=== PATIENT | female | born 1945 | race Caucasian/White ===

== ENCOUNTER 2020-02-26 06:54 | Outpatient (NON) | payer MEDICARE, SELFPAY ==
[2020-02-27 00:43] LABS: SARS-CoV-2 RNA PCR Negative
== END 2020-02-26 06:55 ==
PROVIDERS: PCP Family Medicine; Visit Provider Family Medicine
DX: Z20.828 Contact with and (suspected) exposure to other viral communicable diseases (principal)
CPT/HCPCS: 87635; C9803; U0003

== ENCOUNTER 2020-05-06 17:32 | Emergency (ER) | payer MEDICARE, SELFPAY ==
--- NOTE | ~2020-05-06 | CT_ITS ---
EXAMINATION: CT brain wo con INDICATION: Head injury COMPARISON: 03/28/2017 TECHNIQUE: Standard unenhanced head CT. The dose-length product (DLP) was 605.33 mGy-cm. The mA was a djusted according to patient size. Iterative reconstruction technique was employed. FINDINGS: There is no acute intraparenchymal hemorrhage. No evidence of mass lesion. No evidence of a cute infarction. There is moderate periventricular and subcortical hypodensity probably related to sm all vessel ischemic disease. There is moderate prominence of the sulci and ventricles related to cere bral atrophy. Intracranial calcified cerebral atherosclerosis is noted. There are no extra-axial keely ections. There is no mass effect or midline shift. The orbits and soft tissues are unremarkable. The re is mild mucosal thickening of the paranasal sinuses. IMPRESSION: 1. No acute intracranial abnormality. 2. Age related findings. Reviewed, dictated and finalized at location A. ING MACHINE OPERATOR
--- NOTE | ~2020-05-06 | CT_ITS ---
EXAMINATION: CT facial & cervical spine wo DATE: 05/06/2020 18:16 INDICATION: Head injury, facial and neck pain after fall TECHNIQUE: Computed tomography (CT) of the maxillofacial region and cervical spine was performed with out intravenous contrast. The dose-length product (DLP) was 156.34 mGy-cm. Automated exposure control and iterative reconstruction technique were employed. COMPARISON: 03/28/2017 FINDINGS: MAXILLOFACIAL CT: No definite facial bone fracture is identified. The globes and orbits are intact. There is mild mucos al thickening of the paranasal sinuses. CERVICAL SPINE CT: There are 2 mm of anterolisthesis of C6 on C7. Vertebral body alignment is otherwise maintained. No f racture is identified. The odontoid is intact. The vertebral body heights are normal. Small degenerat kailey osteophytes project from the anterior endplates of multiple vertebral bodies. There is moderate t o severe multilevel facet and uncovertebral joint osteoarthritis. The prevertebral soft tissues are n ormal. Stable nodules of the visualized lung apices are consistent with old granulomatous disease. IMPRESSION: 1. No facial fracture identified. 2. Mild cervical spondylosis without acute findings. Reviewed, dictated and finalized at location A. ER MACHINE
[2020-05-06 17:36] VITALS: BP 100/80; PULSE 74; RESP 18; TEMP 36; O2SAT 100
--- NOTE | 2020-05-06 20:36 | ED.GENADULT ---
HPI - General Adult General Chief complaint: Head Injury Stated complaint: fall/tripped over dog gate/family denies los Time Seen by Provider: 05/06/20 19:57 Source: patient and family (Daughter) Mode of arrival: ambulatory Limitations: dementia History of Present Illness HPI narrative: Patient presents with daughter with chief complaint of hematoma to her forehead and abrasions to her nose after tripping over the dog gate at home and falling. They deny syncope and states that the patient was able to help get herself up. They deny any changes to her baseline mental status, vomiting, complaints of dizziness, chest pain or shortness of breath. Patient reports small abrasions to her anterior knees but states that they are not painful. Patient denies any pain to her chest shoulders or elbows. Patient denies any neck or back pain. Patient denies any other injuries or concerns. Related Data Allergies Allergy/AdvReac Type Severity Reaction Status Date / Time No Known Allergies Allergy Unknown Unverified 02/22/19 13:00 No Known Allergies Allergy Uncoded 02/22/19 13:00 Review of Systems Review of Systems: Narrative: CONSTITUTIONAL: Denies fever, chills, or sweats. EYES: Denies visual changes, redness, or discharge. ENT: Denies rhinorrhea, congestion, sore throat, or otalgia. CARDIOVASCULAR: Denies chest pain, palpitations, or edema. RESPIRATORY: Denies cough or dyspnea. GASTROINTESTINAL: Denies abdominal pain, nausea, vomiting, or diarrhea. GENITOURINARY: Denies dysuria or hematuria. SKIN: Reports abrasion to nose and hematoma to forehead denies rash or itching. MUSCULOSKELETAL: Denies back pain, joint pain, or myalgia. NEUROLOGIC: Denies headache, numbness, dizziness, or weakness. PSYCHIATRIC: Denies anxiety or depression. Exam Narrative: Exam Narrative: GENERAL: Well-appearing, well-nourished, and in no acute distress. HEAD: Normocephalic, atraumatic. EYES: PERRLA and EOMI. ENT: Nares clear, no rhinorrhea or epistaxis. Mucous membranes moist. Oropharynx without tonsillar hypertrophy exudate or other lesions. Bilateral TMs pearly cabezas nonbulging. No hemotypanum. NECK: Supple. No adenopathy or masses. No tenderness to palpation. CHEST: No abrasions, ecchymosis or erythema. Clear to auscultation. No respiratory distress. No wheezes rales or rhonchi HEART: Regular rate and rhythm. ABDOMEN: Soft, nontender, nondistended, normal active bowel sounds. EXTREMITIES: small abrasions to knees, patient denies elver tenderness. ROM intact. no appreciated swelling. Normal range of motion. No edema. SKIN: Hematoma to center of forehead in abrasion to the nasal bridge. There is not epistaxis of the nose. warm, dry, no rash. NEURO: No focal deficits. Alert and oriented x3. PSYCH: Normal mood and affect. Course Vital Signs Vital signs: Vital Signs Temperature 96.8 F L 05/06/20 17:36 Pulse Rate 74 05/06/20 17:36 Respiratory Rate 18 05/06/20 17:36 Blood Pressure 100/80 05/06/20 17:36 Pulse Oximetry 100 05/06/20 17:36 Temperature 96.8 F L 05/06/20 17:36 Pulse Rate 74 05/06/20 17:36 Respiratory Rate 18 05/06/20 17:36 Blood Pressure 100/80 05/06/20 17:36 Pulse Oximetry 100 05/06/20 17:36 Medical Decision Making MDM Narrative Medical decision making narrative: Patient CT of her face head and cervical spine were negative for acute injury. Discussed wound care and application of antibacterial ointment to abrasion and cool compress to hematoma. Discussed follow-up with primary care within a week for reevaluation and return to emergency department if any emergent symptoms present with patient and her daughter. Patient did not fall due to dizziness, syncope, chest pain. It was a fall due to miss stepping over a dog gate. Vital Signs Vital Signs: Vital Signs Temperature 96.8 F L 05/06/20 17:36 Pulse Rate 74 05/06/20 17:36 Respiratory Rate 18 05/06/20 17:36 Blood Pressure 100/80 05/06/20 17:36 Pulse Oximetry 10
[2020-05-06 21:00] VITALS: BP 112/78; PULSE 76; RESP 18; O2SAT 100
== END 2020-05-06 21:00 | disposition home or self-care (01) ==
PROVIDERS: Emergency Provider Emergency Medicine; PCP Family Medicine
DX: S00.83XA Contusion of other part of head, initial encounter (principal); S00.31XA Abrasion of nose, initial encounter; W01.0XXA Fall on same level from slipping, tripping and stumbling without subsequent striking against object, initial encounter
CPT/HCPCS: 70450; 70486; 72125; 99284

== ENCOUNTER 2020-05-26 12:20 | Observation (INO) | payer MEDICARE, SELFPAY ==
[2020-05-26] VITALS (17 sets, daily range): BP systolic 153–204; BP diastolic 65–95; PULSE 50–93; RESP 9–20; TEMP 35.9–37; O2SAT 99–100; BMI 21.7
--- NOTE | ~2020-05-26 | XR_ITS ---
XR chest 1V DATE: 05/26/2020 14:07 INDICATION: Confusion, transient alteration of awareness. TECHNIQUE: AP chest COMPARISON: 03/29/2017 CT abdomen scan 03/28/2017 portable AP chest FINDINGS: Normal heart size. Mild aortic unfolding. No hilar or mediastinal enlargement. No pulmonary infiltrate or consolidation, pleural effusion or pulmonary vascular congestion or pneumo thorax. IMPRESSION: No active cardiopulmonary disease Reviewed, dictated and finalized at location A. TIATIONS DIRECTOR
--- NOTE | ~2020-05-26 | CT_ITS ---
EXAMINATION: CT brain wo con DATE: 05/26/2020 13:55 INDICATION: Confusion. Multiple falls. TECHNIQUE: Computed tomography (CT) of the head was performed without intravenous contrast. The mA wa s adjusted according to patient size. Iterative reconstruction technique was employed. Exam dose: 60 5.33 mGy-cm total exam DLP. COMPARISON: 05/16/2020 CT brain FINDINGS: Cerebral atherosclerotic calcifications are noted, involving particularly the carotid sipho n internal carotid arteries. There is nonspecific diminished attenuation of the subcortical and periv entricular cerebral white matter, likely due to chronic small vessel ischemic changes. There is moderate central and cortical cerebral and cerebellar atrophy. No intracranial mass lesion or hemorrhage, midline shift or mass effect is evident. Bilateral basal g anglia calcifications are noted. No subdural or epidural hematoma. No fracture or bone destruction of the cranial vault. Mild focal right posterior ethmoid air cell opacification. Included paranasal sinuses and the mastoid air cells otherwise appear normally developed and aerated. IMPRESSION: Cerebral atherosclerosis and chronic small vessel ischemic changes of the cerebral white matter No acute intracranial finding or significant change since 05/16 2020 Reviewed, dictated and finalized at Location A. Reviewed, dictated and finalized at location A. CLUB NECK WHIPPER
--- NOTE | 2020-05-26 13:42 | ED.GENADULT ---
HPI - General Adult General Chief complaint: Fall Stated complaint: fall - head injury Time Seen by Provider: 05/26/20 13:16 Source: patient Limitations: dementia History of Present Illness HPI narrative: Patient is 74 years old white female brought to the emergency room by her son who is telling me that he would like to get some evaluation for the patient because Not taking her medication, fighting with her sister who lives with her all the time, cannot take care of herself. The son reported that her symptoms got worse after a fall 1 week ago when she came to our emergency room at that time. Also telling me that he try to place her in a mcc who declined accepting her because she gets agitated every now and then. The son denies any new symptoms compared to 1 week ago. Related Data Home Medications Medication Instructions Recorded Confirmed escitalopram oxalate 5 mg PO DAILY 05/26/20 losartan-hydrochlorothiazide 1 tablet PO DAILY 05/26/20 [Hyzaar] metoprolol succinate 25 mg PO DAILY 05/26/20 Allergies Allergy/AdvReac Type Severity Reaction Status Date / Time No Known Allergies Allergy Unknown Unverified 02/22/19 13:00 No Known Allergies Allergy Uncoded 02/22/19 13:00 Review of Systems Review of Systems: ROS unobtainable: Yes unobtainable due to mental status PMFSH Social History Social History Gender identity (if verbalized by the patient): Male Exam Narrative: Exam Narrative: General appearance: Well-developed, well-nourished Skin: Normal color Head: Normocephalic, nontraumatic Eyes: Clear conjunctiva ENT: Oropharynx normal, ears normal, nose normal Neck: Supple, nontender Chest and respiratory: Airway patent, no respiratory distress, no accessory muscle use Heart: Regular rate/rhythm Abdomen: Soft, nontender, no organomegaly, quiet bowel sounds Vascular: Normal peripheral pulses, normal capillary refill. Musculoskeletal: Normal range of motion, nontender back Neurologic: Alert and oriented to her name only otherwise confused Course Course Emergency Course: Stable Vital Signs Vital signs: Vital Signs Temperature 35.9 C L 05/26/20 12:35 Pulse Rate 63 05/26/20 12:35 Respiratory Rate 17 05/26/20 12:35 Blood Pressure 181/65 H 05/26/20 12:35 Pulse Oximetry 100 05/26/20 12:35 Temperature 35.9 C L 05/26/20 12:35 Pulse Rate 63 05/26/20 12:35 Respiratory Rate 17 05/26/20 12:35 Blood Pressure 181/65 H 05/26/20 12:35 Pulse Oximetry 100 05/26/20 12:35 Medical Decision Making MDM Narrative Medical decision making narrative: Basically patient brought to the emergency room for evaluation for possible mcc placement. Labs, chest x-ray, CT head, UA ordered. Further plan to follow Differential Diagnosis Differential Diagnosis: Electrolyte imbalance, urinary tract infection, progression of dementia, major depression with agitation Vital Signs Vital Signs: Vital Signs Temperature 35.9 C L 05/26/20 12:35 Pulse Rate 63 05/26/20 12:35 Respiratory Rate 17 05/26/20 12:35 Blood Pressure 181/65 H 05/26/20 12:35 Pulse Oximetry 100 05/26/20 12:35 Temperature 35.9 C L 05/26/20 12:35 Pulse Rate 63 05/26/20 12:35 Respiratory Rate 17 05/26/20 12:35 Blood Pressure 181/65 H 05/26/20 12:35 Pulse Oximetry 100 05/26/20 12:35 Critical Care Time Critical Care Time Critical Care Time: Yes Total Critical Care Time: 30 Discharge Plan Discharge Prescriptions: No Action losartan-hydrochlorothiazide [Hyzaar] 50-12.5 mg Tablet 1 tablet PO DAILY RF: 0 escitalopram oxalate 5 mg Tablet 5 mg PO DAILY RF:
[2020-05-26 14:21] LABS: Basophils Percent Auto 0.4 % (0.2-1.2); Eosinophils Percent Auto 0.7 % (0-4.4); Hematocrit 38.5 % (37.0-47.0); Immature Granulocyte Absolute 0.01 K/mm3 (0.00-0.031); Immature Granulocyte Percent A 0.2 % (0-0.5); Lymphocytes Absolute Auto 0.93 K/mm3 (0.9-3.2); Lymphocytes Percent Auto 20.6 % (18.3-44.2); Mean Corpuscular HGB Conc 33.8 g/dl (32-36); Mean Corpuscular Hemoglobin 29.1 pg (26-34); Mean Corpuscular Volume 86.1 fl (80-100); Mean Platelet Volume 11.3 fl (7.4-10.4); Monocytes Absolute Auto 0.2 K/mm3 (0.1-0.6); Monocytes Percent Auto 5.3 % (2.6-8.5); Neutrophils Absolute Auto 3.3 K/mm3 (1.3-6.7); Neutrophils Percent Auto 72.8 % (45.5-73.1); Platelet Count Result 145 k/mm3 (150-375); Red Blood Count 4.47 M/mm3 (4.2-5.4); Red Cell Distribution Width 13.5 % (11.5-14.5); White Blood Count 4.5 K/mm3 (4.5-10.0)
[2020-05-26 14:36] LABS: Alanine Aminotransferase 9 U/L (4-35); Albumin Level 3.6 g/dL (3.5-5.1); Alkaline Phosphatase 71 U/L (38-126); Anion Gap 5 mmol/L (8-16); Aspartate Amino Transferase 25 U/L (14-36); Bilirubin,Total 0.8 mg/dL (0.2-1.3); Blood Urea Nitrogen 14 mg/dL (7-17); Calcium 9.3 mg/dL (8.4-10.2); Carbon Dioxide 35 mmol/L (22-30); Chloride 97 mmol/L (98-107); Estimated CRCL calculation 36 ml/min; Estimated Glomerular Filt Rate 54; Glucose 98 mg/dL (65-105); Potassium 2.8 mmol/L (3.4-5.0); Sodium 137 mmol/L (137-145)
[2020-05-26] MEDS: POTASSIUM CHLORIDE 20 MEQ PACKET (FOR LIQUID) 40 MEQ PO (15:23)
--- NOTE | 2020-05-26 16:00 | PCCCNOTE ---
Patient currently lives with her sister who no longer feels capable of caring for the patient due to her dementia. Son is requesting placement in memory care while he explores the possibility of having her live with him with the assistance of an aide. ER documents sent to [facility] and to [facility] Verm[facility]
--- NOTE | 2020-05-26 17:30 | PM.IMHP ---
H&P: HPI History of Present Illness Date/Time: 05/26/20 17:30 Chief Complaint: Fall, weakness, increasing confusion. Narrative: Willow Fields is a 74-year-old female with dementia and hypertension who presented to the emergency department earlier today with her son via private vehicle for evaluation due to increasing confusion and refusal to take medications. She is not able to provide an accurate history due to severe dementia and as such the following is obtained via a review of her electronic medical records and discussions with her son. She lives at home with her sister who reports increasing behavioral disturbances, outburst, and falls to the point where family members can no longer care for her. Apparently she has been refusing medications as well. She rambles and babbles nonsensically and cannot answer my questions in the appropriate contacts. Review of Systems Review of Systems: Narrative: Unable to be obtained given her severe dementia. [facility] Past Medical History Medical History (Updated 05/26/20 @ 23:35 by Emma Chong PA-C) Abnormal echocardiogram Echocardiogram in March 2017 showed normal left ventricular size and wall thickness with an ejection fraction of 66%. Basal inferior segment of the left ventricle was hypokinetic. Moderate pulmonary hypertension noted, 48 mmHg. Dementia Depression with anxiety Essential hypertension Surgical History Surgical History (Updated 05/26/20 @ 23:35 by Emma Chong PA-C) No history of previous surgery Family History Family History (Updated 05/26/20 @ 16:59 by Emma Chong PA-C) Father Lung cancer Mother Heart disease Dementia Social History Social History (Updated 05/26/20 @ 23:36 by Emma Chong PA-C) Social History: The patient lives in [place] with her sister. She is and has 2 sons. Nonsmoker. No alcohol or illicit substance use. Son Maik is his healthcare power of oil winterizer. Son Lennox is alternate power of oil winterizer. She is a do not resuscitate. Smoking status: Never smoker Alcohol intake: never Substance use: never Gender identity (if verbalized by the patient): Female Spiritual care concerns: No Meds Home Medications and Allergies Home Medications Medication Instructions Recorded Confirmed Type escitalopram oxalate 5 mg PO DAILY 05/26/20 05/26/20 History losartan-hydrochlorothiazide 1 tablet PO DAILY 05/26/20 05/26/20 History [Hyzaar] metoprolol succinate 25 mg PO DAILY 05/26/20 05/26/20 History Allergies Allergy/AdvReac Type Severity Reaction Status Date / Time No Known Allergies Allergy Unknown Unverified 02/22/19 13:00 Vital Signs Vital Signs - 24 hr 05/26/20 12:35 05/26/20 13:45 Temperature 96.7 F L Pulse Rate 63 59 L Respiratory Rate 17 16 Blood Pressure 181/65 H 195/95 H Pulse Oximetry 100 100 Exam Narrative: Exam Narrative: General: Thin frail elderly female sitting up in bed. Weight 59.2 kg. BMI: 21.7. HEENT: Old bruise in the mid forehead. Contusion about the superior nasal bridge. Pupils reactive. Extraocular motions appear to be intact. Sclerae anicteric. Oral mucosa moist. Oropharynx not visualized. Neck: Supple. Exam difficult as the patient moves frequently. Respiratory: Lung sounds are diminished due to poor effort. Cardiovascular: Regular rate and rhythm with S1-S2. Gastrointestinal: Abdomen is soft and nontender with positive bowel sounds. Skin: Warm and dry. Contusion of the superior nose. Old scab on the right knee. Old bruise mid forehead. Extremities: No cyanosis, clubbing, or edema. Radial and pedal pulses intact. Neurological: Alert to name only. Cranial nerves 2-12 are grossly intact. Speech is rambling and babbling. No facial asymmetry. She does not participate in the neurologic exam. Psychiatric: Confused. Rambles and babbles. Occasional irritable. H&P: Results Labs Labs: Short CBC 05/26/20 Range
--- NOTE | 2020-05-26 18:18 | ADMGEN ---
This patient, Willow Fields, was admitted to 2 Medical Room 245-. Patient/family oriented to hospital policies and general routines including ID bracelet, bed and alarms, visiting hours, pain management, procedures, bathroom and other care routines, personal items, smoking policy, room service/diet, and visiting hours. Information on how to activate the Rapid Response Team has been discussed. Patient/Family are encouraged to report perceived risks to care and to ask questions if they do not understand what they are told or what they should do.
[2020-05-26] MEDS: SODIUM CHLORIDE 0.9% IV 500 ML IV CONT (20:49)
[2020-05-26 21:18] LABS: Thyroid Stimulating Hormone Reflex 0.797 uIU/mL (0.465-4.68)
[2020-05-26 22:12] LABS: Anion Gap 6 mmol/L (8-16); Blood Urea Nitrogen 12 mg/dL (7-17); Calcium 8.6 mg/dL (8.4-10.2); Carbon Dioxide 30 mmol/L (22-30); Chloride 101 mmol/L (98-107); Estimated CRCL calculation 40 ml/min; Estimated Glomerular Filt Rate > 60; Glucose 112 mg/dL (65-105); Magnesium 1.9 mg/dL (1.6-2.3); Sodium 137 mmol/L (137-145)
[2020-05-27] VITALS (7 sets, daily range): BP systolic 103–151; BP diastolic 64–80; PULSE 47–62; RESP 16; TEMP 36.2–36.6; O2SAT 97–100; BMI 21.1
[2020-05-27 07:00] LABS: Anion Gap 3 mmol/L (8-16); Blood Urea Nitrogen 9 mg/dL (7-17); Calcium 8.6 mg/dL (8.4-10.2); Carbon Dioxide 31 mmol/L (22-30); Chloride 101 mmol/L (98-107); Estimated CRCL calculation 42 ml/min; Estimated Glomerular Filt Rate > 60; Glucose 110 mg/dL (65-105); Potassium 3.7 mmol/L (3.4-5.0); Sodium 135 mmol/L (137-145)
[2020-05-27 07:46] LABS: Magnesium 1.9 mg/dL (1.6-2.3)
--- NOTE | 2020-05-27 08:04 | PCOTNOTE ---
Attempted OT evaluation, Per RN patient has been up all night and has been combative of care. Pt is finally sleeping and RN requested we attempt evaluation at later time. Will follow.
--- NOTE | 2020-05-27 09:36 | PM.IMPN ---
Progress Note: A&P Assessment and Plan (1) Dementia with behavioral disturbance: Code(s): F03.91 - Unspecified dementia with behavioral disturbance Status: Acute Assessment and Plan: The patient is being admitted to the hospitalist service as her sister can no longer care for her at home due to behavioral disturbances associated with her dementia in addition to generalized weakness and history of falls. PT/OT to evaluate patient CC consulted (2) History of recent fall: Code(s): Z91.81 - History of falling Status: Acute Assessment and Plan: Please see above a/p (3) Generalized weakness: Code(s): R53.1 - Weakness Status: Acute Assessment and Plan: Please see above a/p (4) Hypokalemia: Code(s): E87.6 - Hypokalemia Status: Acute Assessment and Plan: K this morning is 3.7. She is refusing all oral medications at this time. HCTZ held Monitor daily, replace as needed (5) Essential hypertension: Code(s): I10 - Essential (primary) hypertension Status: Acute Assessment and Plan: BP a bit soft now this morning at 100s sys. She is refusing her home meds currently. Also, she is bradycardic into the 40s at times HCTZ held due to hypokalemia Continue Losartan Will continue metoprolol at 12.5 mg given bradycardia Monitor closely (6) Thrombocytopenia: Code(s): D69.6 - Thrombocytopenia, unspecified Status: Acute Assessment and Plan: Platelets a bit low, but appears to be chronic (7) Depression with anxiety: Code(s): F41.8 - Other specified anxiety disorders Status: Acute Assessment and Plan: Continue home medications if she is agreeable to take her medications Will add seroquel at low dose if she is agreeable Will do one dose ativan 0.25 IM now as nursing now reports she is combative and has pulled out her IV; will limit use if possible Subjective Date/time seen: 05/27/20 09:36 Interval history: Patient is a 74 yo F with history of dementia and hypertension who is here for increasing confusion and refusing to take her medications. Patient is significantly agitated when visiting patient at bedside with multiple aids attempting to have patient sit back in bed. She is only oriented to her self, but is refusing to return back to bed and will not let me exam her. She is very confused as to where she is at and is giving inappropriate/nonsensical answers to my questions. Given her current mental status, HPI and examination unobtainable at the moment. Review of Systems Review of Systems: ROS unobtainable: Yes unobtainable due to mental status (see above) Exam Narrative: Exam Narrative: General: Patient sitting at side of bed attempting to get out of bed, agitated, with nursing in room attempting to get patient back in bed. A&O to herself, but does not know where she is at; nonsensical speech with inappropriate answers. She is refusing any examination at the moment HEENT: Normocephalic, EOMI to casual conversation Cardiovascular: unobtainable Respiratory: auscultation unobtainable. No acute respiratory distress Abdomen: unobtainable Extremities: moves all extremities Neuro: No focal neurological deficits to casual conversation. Speech is clear but nonsensical Objective Data Vital Signs Vital Signs: Last Vital Signs Temp 97.6 F 05/27/20 06:00 Pulse 47 L 05/27/20 08:00 Resp 16 05/27/20 06:00 BP 103/80 05/27/20 06:00 Pulse Ox 100 05/27/20 06:00 Intake/Output Intake/Output: Intake & Output 05/24/20 05/25/20 05/26/20 05/27/20 23:59 23:59 23:59 23:59 Intake Total 850 Output Total 1200 Balance -350
--- NOTE | 2020-05-27 09:52 | PCPTNOTE ---
Attempted PT eval. Pt agitated and combative. Will try again at later time.
[2020-05-27] MEDS: LORazepam INJ (*CRX) 2 MG/ML VIAL 0.25 MG IM (10:04)
--- NOTE | 2020-05-27 10:36 | PCOTNOTE ---
Attempted OT eval. Pt agitated and combative. Will try again at later time.
[2020-05-27 19:05] LABS: Add Urine Microscopic? YES; Appearance Urine Clear (Clear); Bilirubin Urine Negative (Negative); Blood Urine Negative (Negative); Color Urine Yellow (Yellow); Glucose Urine UA Negative (Negative); Ketones Urine Negative (Negative); Leukocyte Esterase Ur Negative LEU/UL (Negative); Mucus Urine Few /lpf; Nitrate Urine Negative (Negative); Protein Urine 1+ mg/dL (Negative); RBC Urine 0-2 /hpf (0-2); Specific Grav Ur 1.012 (1.001-1.035); Squamous Epithelial Cell Urine Occasional /hpf (Few); WBC Urine 0-3 /hpf
--- NOTE | 2020-05-27 21:53 | PC.NURSE ---
Patient refused seroquel 05/27/2020 21:00 Dr Rodriguez aware.
[2020-05-28 06:00] VITALS: BP 115/89; PULSE 89; RESP 18; TEMP 36.6; O2SAT 99
[2020-05-28 08:34] LABS: Anion Gap 4 mmol/L (8-16); Blood Urea Nitrogen 11 mg/dL (7-17); Carbon Dioxide 29 mmol/L (22-30); Chloride 103 mmol/L (98-107); Estimated CRCL calculation 38 ml/min; Estimated Glomerular Filt Rate 54; Glucose 89 mg/dL (65-105); Potassium 3.3 mmol/L (3.4-5.0); Sodium 136 mmol/L (137-145)
--- NOTE | 2020-05-28 11:35 | PM.DS ---
DS: Discharge Diagnosis Discharge Diagnosis (1) Dementia with behavioral disturbance: Code(s): F03.91 - Unspecified dementia with behavioral disturbance Status: Acute Assessment and Plan: The patient is being admitted to the hospitalist service as her sister can no longer care for her at home due to behavioral disturbances associated with her dementia in addition to generalized weakness and history of falls. PT/OT following CC consulted; patient will be discharged to [place] likely today once covid test results (2) History of recent fall: Code(s): Z91.81 - History of falling Status: Acute Assessment and Plan: Please see above a/p (3) Generalized weakness: Code(s): R53.1 - Weakness Status: Acute Assessment and Plan: Please see above a/p (4) Hypokalemia: Code(s): E87.6 - Hypokalemia Status: Acute Assessment and Plan: K this morning is 3.3. Likely from poor PO intake. She is refusing all oral medications at this time. HCTZ held Monitor daily, replace as needed if patient allows (5) Essential hypertension: Code(s): I10 - Essential (primary) hypertension Status: Acute Assessment and Plan: BP 110s sys. She is refusing her home meds currently. Also, she is bradycardic into the 40s at times HCTZ held due to hypokalemia Continue Losartan Will continue metoprolol at 12.5 mg given bradycardia (6) Thrombocytopenia: Code(s): D69.6 - Thrombocytopenia, unspecified Status: Acute Assessment and Plan: Platelets a bit low, but appears to be chronic (7) Depression with anxiety: Code(s): F41.8 - Other specified anxiety disorders Status: Acute Assessment and Plan: Continue home medications if she is agreeable to take her medications F/u with PCP DS: Summary Time Spent with Patient Time attestation: Total time spent providing and/or coordinating discharge services: Exam Narrative: Exam Narrative: General: Patient sitting in bed at time of visit. A&O to herself, but does not know where she is at; nonsensical speech with inappropriate answers. HEENT: Normocephalic,right upper lip slight edematous, EOMI to casual conversation Cardiovascular: RRR, no murmur appreciated Respiratory: CTAB. No acute respiratory distress Abdomen: BS present, NTTP Extremities: moves all extremities. NTTP b/l calves Neuro: No focal neurological deficits to casual conversation. Speech is clear but nonsensical DS: Data Data Completed and Pending Labs on day of discharge: Laboratory Tests 05/26/20 14:12 05/28/20 08:08 Last Vital Signs Temp 97.9 F 05/28/20 06:00 Pulse 89 05/28/20 06:00 Resp 18 05/28/20 06:00 BP 115/89 05/28/20 06:00 Pulse Ox 99 05/28/20 06:[address] 05/26/20 13:56 IMPRESSION: Cerebral atherosclerosis and chronic small vessel ischemic changes of the cerebral white matter No acute intracranial finding or significant change since 05/16 2020 Chest X-Ray 05/26/20 14:08 IMPRESSION: No active cardiopulmonary disease Discharge Plan Discharge Attending physician on discharge: Sergey Porter Discharging Clinician: Filemon Khoruy Anticipated Discharge Date/Time: 05/28/20 16:00 Patient Disposition: NH Alf/Asst Living Activity: no driving and as tolerated Diet: regular Discharge Instructions: Discharge instructions per Hospitalist: Follow up with PCP or [place] physician in 1-2 weeks for follow up Note that your metoprolol has been decreased to 12.5 mg Take only 50 mg Losartan daily. Stop taking hydrochlorothiazide Consider voiding trial in 2-3 days; if still retaini
[2020-05-28] MEDS: KCL 20 MEQ/SW 100 ML 100 ML 50 MEQ IVPB (13:09)
[2020-05-28 14:00] VITALS: BP 125/77; PULSE 78; RESP 20; TEMP 36.3; O2SAT 99
--- NOTE | 2020-05-28 14:45 | PM.IMPN ---
Progress Note: A&P Assessment and Plan (1) Dementia with behavioral disturbance: Code(s): F03.91 - Unspecified dementia with behavioral disturbance Status: Acute Assessment and Plan: The patient is being admitted to the hospitalist service as her sister can no longer care for her at home due to behavioral disturbances associated with her dementia in addition to generalized weakness and history of falls. PT/OT following CC consulted; patient will be discharged to [facility] likely tomorrow once covid test results return late tonight (2) History of recent fall: Code(s): Z91.81 - History of falling Status: Acute Assessment and Plan: Please see above a/p (3) Generalized weakness: Code(s): R53.1 - Weakness Status: Acute Assessment and Plan: Please see above a/p (4) Hypokalemia: Code(s): E87.6 - Hypokalemia Status: Acute Assessment and Plan: K this morning is 3.3. Likely from poor PO intake. She is refusing all oral medications at this time. HCTZ held Monitor daily, replace as needed if patient allows (5) Essential hypertension: Code(s): I10 - Essential (primary) hypertension Status: Acute Assessment and Plan: BP 110s sys. She is refusing her home meds currently. Also, she is bradycardic into the 40s at times HCTZ held due to hypokalemia Continue Losartan Will continue metoprolol at 12.5 mg given bradycardia (6) Thrombocytopenia: Code(s): D69.6 - Thrombocytopenia, unspecified Status: Acute Assessment and Plan: Platelets a bit low, but appears to be chronic (7) Depression with anxiety: Code(s): F41.8 - Other specified anxiety disorders Status: Acute Assessment and Plan: Continue home medications if she is agreeable to take her medications F/u with PCP Subjective Date/time seen: 05/28/20 14:45 Interval history: Patient is a 74 yo F with history of dementia and hypertension who is here for increasing confusion and refusing to take her medications. Patient is less agitated today. She is cooperative, but still very confused giving inappropriate/nonsensical answers to my questions. She is Alert and oriented only to her self. Given her current mental status, HPI and examination unobtainable at the moment. Review of Systems Review of Systems: ROS unobtainable: Yes unobtainable due to mental status (see above) Exam Narrative: Exam Narrative: General: Patient sitting in bed at time of visit. A&O to herself, but does not know where she is at; nonsensical speech with inappropriate answers. HEENT: Normocephalic,right upper lip slight edematous, EOMI to casual conversation Cardiovascular: RRR, no murmur appreciated Respiratory: CTAB. No acute respiratory distress Abdomen: BS present, NTTP Extremities: moves all extremities. NTTP b/l calves Neuro: No focal neurological deficits to casual conversation. Speech is clear but nonsensical Objective Data Vital Signs Vital Signs: Vital Signs - 24 hr 05/27/20 21:00 05/28/20 06:00 Temperature 97.8 F 97.9 F Pulse Rate 57 L 89 Respiratory Rate 16 18 Blood Pressure 151/66 H 115/89 Pulse Oximetry 99 99 Intake/Output Intake/Output: Intake & Output 05/25/20 05/26/20 05/27/20 05/28/20 23:59 23:59 23:59 23:59 Intake Total 950 240 Output Total 1200 1700 Balance -250 -1460 Meds/Results Medications: Active Medications Generic Name Dose Route Start Last Admin Trade Name Freq PRN Reason Stop Dose Admin Escitalopram Oxalate 5 mg 05/27/20 09:00 05/28/20 10:38 Escitalopram Oxalate 5 Mg Tablet PO Not Given DAILY MAURI Hydrochlorothiazide 12.5 mg 05/27/20 09:00
[2020-05-28 17:56] LABS: SARS-CoV-2 RNA PCR Negative
[2020-05-28] MEDS: QUEtiapine FUMARATE 12.5 MG TABLET PO (21:10)
--- NOTE | 2020-05-28 21:35 | PC.NURSE ---
Seroquel was given 05/18/2020 21:10. The medication would not scan, it has been verified by myself Leah Arnett and Tamela Vallejo.
[2020-05-28 22:00] VITALS: BP 158/82; PULSE 62; RESP 118; TEMP 36.2; O2SAT 100
[2020-05-29 05:01] VITALS: BP 176/76; PULSE 80; RESP 20; TEMP 35.9; O2SAT 100
[2020-05-29 06:12] LABS: Anion Gap 9 mmol/L (8-16); Blood Urea Nitrogen 15 mg/dL (7-17); Calcium 8.9 mg/dL (8.4-10.2); Carbon Dioxide 23 mmol/L (22-30); Chloride 103 mmol/L (98-107); Estimated CRCL calculation 41 ml/min; Estimated Glomerular Filt Rate > 60; Glucose 85 mg/dL (65-105); Potassium 3.1 mmol/L (3.4-5.0); Sodium 135 mmol/L (137-145)
--- NOTE | 2020-05-29 08:33 | PM.DS ---
DS: Admitting Diagnosis Admitting Diagnosis Admitting Diagnosis: dementia with behavioral disturbances, history of recent fall, generalized weakness, hypokalemia DS: Discharge Diagnosis Discharge Diagnosis (1) Dementia with behavioral disturbance: Code(s): F03.91 - Unspecified dementia with behavioral disturbance Status: Acute Assessment and Plan: The patient is being admitted to the hospitalist service as her sister can no longer care for her at home due to behavioral disturbances associated with her dementia in addition to generalized weakness and history of falls. PT/OT following CC consulted; patient will be discharged to today as covid test returned as negative late last night (2) History of recent fall: Code(s): Z91.81 - History of falling Status: Acute Assessment and Plan: Please see above a/p (3) Generalized weakness: Code(s): R53.1 - Weakness Status: Acute Assessment and Plan: Please see above a/p (4) Hypokalemia: Code(s): E87.6 - Hypokalemia Status: Acute Assessment and Plan: K this morning is 3.1; replaced. Likely from poor PO intake. She is refusing all oral medications at this time. HCTZ held Monitor daily, replace as needed if patient allows (5) Essential hypertension: Code(s): I10 - Essential (primary) hypertension Status: Acute Assessment and Plan: BP 170s sys. She is refusing her home meds currently. Also, she is bradycardic into the 40s at times HCTZ held due to hypokalemia Continue Losartan Will continue metoprolol at 12.5 mg given bradycardia (6) Thrombocytopenia: Code(s): D69.6 - Thrombocytopenia, unspecified Status: Acute Assessment and Plan: Platelets a bit low, but appears to be chronic (7) Depression with anxiety: Code(s): F41.8 - Other specified anxiety disorders Status: Acute Assessment and Plan: Continue home medications if she is agreeable to take her medications F/u with PCP DS: Summary Hospital Course Reason for hospitalization: dementia with behavioral disturbance, recent falls, generalized weakness Hospital Course: Date of arrival: 05/26/20 Date of discharge: 05/29/20 Patient is a 74-year-old female with dementia and hypertension who presented to the emergency department earlier today with her son via private vehicle for evaluation due to increasing confusion and refusal to take medications. Patient apparently lived at home with her sister who reported increasing behavioral disturbances, outbursts, and falls to a point where family members can no longer care for her. She had been refusing her medications as well. Ct brain was grossly unremarkable for acute intracranial findings. Patient admitted under this setting and possible placement. Please see H&P for further details. Patient was admitted to the hospitalist service for further management. Patient was attempted to get her home medications multiple times which she refused most attempts. It was also attempted to initiate Seroquel which she refused. She was found to have labile blood pressures likely secondary to refusal of medications. Her HCTZ was discontinued as she was found to have hypokalemia during her stay, likely secondary to the diuretic and/or poor PO intake; this was replaced during stay. Plan was for her to be discharged to [place] for further care as family was unable to care for patient at home. She was to follow up with the [facility] physician in 1-2 weeks. Her Metoprolol was decreased to 12.5 mg daily as she was bradycardic into the 50s during her stay. Patient and family were agreeable and comfortable with plan for discharge. Patient hemodynam
[2020-05-29 14:00] VITALS: BP 186/76; PULSE 96; RESP 24; TEMP 36.2; O2SAT 100
== END 2020-05-29 17:27 ==
LOC: ANHED 13:16 → ANH2MED 16:40
PROVIDERS: Physician Assistant; Student in an Organized Health Care Education/Training Program; Admitting Provider Family Medicine; Emergency Provider Emergency Medicine; PCP Family Medicine; Visit Provider Internal Medicine
DX: F03.91 Unspecified dementia, unspecified severity, with behavioral disturbance (principal); Z20.828 Contact with and (suspected) exposure to other viral communicable diseases; R53.1 Weakness; E87.6 Hypokalemia; R29.6 Repeated falls; R45.1 Restlessness and agitation; I10 Essential (primary) hypertension; F41.8 Other specified anxiety disorders; D69.6 Thrombocytopenia, unspecified; Z91.14 Patient's other noncompliance with medication regimen; Z66 Do not resuscitate
CPT/HCPCS: 36415; 70450; 71045; 80048; 80053; 81001; 82607; 83735; 84443; 85025; 87635; 96365; 96366; 96372; 96376; 97161; 97165; 99285; A9270; C9803; G0378; J2060; J3480; J7040; U0003